=== PATIENT | female | born 1995 | race Caucasian/White ===

== ENCOUNTER 2023-01-24 10:38 | Emergency (ER) | payer SELFPAY ==
[2023-01-24] MEDS ORDERED: Sodium Chloride 0.9% 10 ML Syringe FLUSH PRN (10:41)
[2023-01-24] MEDS ORDERED: Sodium Chloride 0.9% 1,000 ML IV ONE ×2 (10:41→12:31)
[2023-01-24] MEDS ORDERED: Sodium Chloride 0.9% 2.5 ML Syringe FLUSH PRN (10:41)
[2023-01-24 11:46] LABS: CARBON DIOXIDE,CO2 24.9 mmol/L (21.0-32.0); POTASSIUM,K 3.7 mmol/L (3.5-5.1)
== END 2023-01-24 14:24 | disposition home or self-care (01) ==
LOC: MW.ED 10:38
DX: G90.A Postural orthostatic tachycardia syndrome [POTS] (principal)
CPT/HCPCS: 36415; 80053; 81001; 81025; 85025; 93005; 96360; 96361; 99284; J3490; J7030